=== PATIENT | female | born 1960 | race Caucasian/White ===

== ENCOUNTER 2020-04-10 14:50 | Inpatient (IN) | payer OTHER ==
[~2020-04-10] VITALS: Ht 157.5 cm; Wt 54.3 kg
--- NOTE | 2020-04-10 15:20 | NUR ---
THIS IS A 59 YO FEMALE COMING IN FOR LEFT ARM SWELLING AROUND FISTULA, LEFT BREAST SWELLING, FACIAL SWELLING, AND LEFT SHOULDER PAIN X2 DAYS. PER DAUGHTER PATIENT HAS HAD ISSUES WITH FISTULA IN PAST WITH VENOUS SWELLING, SPECIAL EVENTS MANAGER AWARE, WAS SUPPOSED TO REFER PATIENT TO VASCULAR MD, BUT WAS UNABLE TO DUE TO COVID. NOTED VENOUS SWELLING AROUND FISTULA, INTO LEFT BREAST, BILATERAL JVD PRESENT. LAST DIALYSIS WAS THIS AM. DIAGNOSED WITH KIDNEY FAILURE 2 YEARS AGO. ALL MONITORING IN PLACE, VSS, NADN, CALL LIGHT IN REACH.
[2020-04-10] MEDS ORDERED: SODIUM CHLORIDE FLUSH 10ML SYR IVF ONE (15:30)
--- NOTE | 2020-04-10 15:58 | NUR ---
ULTRASOUND PIV PLACED BY SONIA BO
--- NOTE | 2020-04-10 16:01 | NUR ---
ULTRASOUND TO ROOM
--- NOTE | 2020-04-10 16:02 | NUR ---
TASK RN: RIGHT FOREARM 2.5 INCH 18 GAUGE "INROCAN" PIV PLACED WITH ULTRASOUND
[2020-04-10 16:27] LABS: ALBUMIN 3.6 g/dL (3.4-5.0); ANION GAP 5 mmol/L (5-15); CHLORIDE 96 mmol/L (98-107)
[2020-04-10 16:33] LABS: ALANINE AMINOTRANSFERASE 21 U/L (12-78); ALKALINE PHOSPHATASE 63 U/L (45-117); BILIRUBIN,TOTAL 0.7 mg/dL (0.2-1.0); CREATININE 3.22 mg/dL (0.55-1.02); TOTAL PROTEIN 7.7 g/dL (6.4-8.2); TROPONIN I < 0.015 ng/mL (0.000-0.045)
[2020-04-10 16:41] LABS: BASOPHILS # (AUTO) 0.02 x10^3/uL (0-0.1); BASOPHILS % (AUTO) 0 % (0-1); EOSINOPHILS # (AUTO) 0.13 x10^3/uL (0-0.4); EOSINOPHILS % (AUTO) 3 % (1-7); LYMPHOCYTES # (AUTO) 0.54 x10^3/uL (1-3.4); LYMPHOCYTES % (AUTO) 12 % (22-44); MD SCAN; MEAN CORPUSCULAR HEMOGLOBIN 30.9 pg (27.0-34.8); MEAN CORPUSCULAR HGB CONC 31.8 g/dL (32.4-35.8); MEAN CORPUSCULAR VOLUME 96.9 fL (80-100); MEAN PLATELET VOLUME 6.8 fL (7.4-10.4); MONOCYTES % (AUTO) 13 % (2-9); NEUTROPHILS # (AUTO) 3.32 x10^3/uL (1.8-6.8); NEUTROPHILS % (AUTO) 72 % (42-75); PLATELET COUNT 210 x10^3/uL (130-400); RED BLOOD COUNT 3.22 x10^6/uL (3.82-5.3); RED CELL DISTRIBUTION WIDTH 15.4 % (9.6-15.2)
[2020-04-10] MEDS ORDERED: OMNIPAQUE 350 MG/ML, 150 ML BOTTLE ONE (17:15)
--- NOTE | 2020-04-10 17:18 | NUR ---
PATIENT BACK FROM CTA
--- NOTE | 2020-04-10 17:59 | NUR ---
PATIENT AMBULATORY WITH STEADY GAIT TO RESTROOM
--- NOTE | 2020-04-10 18:10 | NUR ---
CALL PLACED TO CT TO GET UPDATE ON DELAY OF CT READ. IMAGE WAS PUSHED THROUGH, AWAITING RADIOLOGIST READ
--- NOTE | 2020-04-10 18:30 | NUR ---
ALL RESULTS BACK, PATIENT UP FOR RECHECK
--- NOTE | 2020-04-10 18:45 | NUR ---
WAITING FOR ERP TO CONSULT WITH VASCULAR MD.
[2020-04-10] MEDS ORDERED: HEPARIN 5,000 UNITS/ML, 1ML IV PRN ×2 (19:00→21:30)
[2020-04-10] MEDS ORDERED: HEPARIN 5,000 UNITS/ML, 1ML IV ONE (19:00)
[2020-04-10] MEDS ORDERED: HEPARIN 25,000 UNITS/250ML PMX 250 ML IV PRN (19:00)
[2020-04-10] MEDS ORDERED: HEPARIN 5,000 UNITS/ML, 1ML ONE (19:02)
[2020-04-10] MEDS ORDERED: HEPARIN 25,000 UNITS/250ML PMX 250 ML ONE (19:02)
--- NOTE | 2020-04-10 19:21 | NUR ---
HEPARIN INFUSION STARTED, VERIFIED BY SONIA SNELL
--- NOTE | 2020-04-10 19:22 | NUR ---
ADMITTING MD IN ROOM
--- NOTE | 2020-04-10 19:43 | NUR ---
ENOC (DAUGHTER): [phone] OKAY TO CALL AND GIVE PATIENT INFO/UPDATES
[2020-04-10] MEDS ORDERED: ONDANSETRON ODT 4 MG PO PRN (20:00)
[2020-04-10] MEDS ORDERED: BISACODYL 10 MG SUPP PR PRN (20:00)
[2020-04-10] MEDS ORDERED: POLYETHYLENE GLYCOL 17 GM PACKET PO PRN (20:00)
--- NOTE | 2020-04-10 20:21 | NUR ---
ATTEMPT TO CALL REPORT X1
--- NOTE | 2020-04-10 20:38 | NUR ---
REPORT GIVEN TO SONIA RODRIGUEZ. PLAN OF CARE DISCUSSED. SONIA RODRIGUEZ AWARE OF HEPARIN INFUSION RUNNING AT TIME OF TRANSFER
[2020-04-10] MEDS: SODIUM CHLORIDE FLUSH 10ML SYR IVF SCH (21:28)
[2020-04-10 21:36] VITALS: BP 109/60
[2020-04-11 01:32] VITALS: BP 159/73
[2020-04-11] MEDS ORDERED: CALC667T6 PO (05:52)
[2020-04-11 07:01] LABS: BASOPHILS # (AUTO) 0.04 x10^3/uL (0-0.1); BASOPHILS % (AUTO) 1 % (0-1); EOSINOPHILS # (AUTO) 0.14 x10^3/uL (0-0.4); EOSINOPHILS % (AUTO) 3 % (1-7); LYMPHOCYTES # (AUTO) 0.96 x10^3/uL (1-3.4); LYMPHOCYTES % (AUTO) 20 % (22-44); MD NO; MEAN CORPUSCULAR HGB CONC 31.9 g/dL (32.4-35.8); MEAN CORPUSCULAR VOLUME 97.2 fL (80-100); MEAN PLATELET VOLUME 7.2 fL (7.4-10.4); MONOCYTES # (AUTO) 0.65 x10^3/uL (0.2-0.8); MONOCYTES % (AUTO) 13 % (2-9); NEUTROPHILS # (AUTO) 3.04 x10^3/uL (1.8-6.8); NEUTROPHILS % (AUTO) 63 % (42-75); PLATELET COUNT 236 x10^3/uL (130-400); RED BLOOD COUNT 3.53 x10^6/uL (3.82-5.3); RED CELL DISTRIBUTION WIDTH 14.9 % (9.6-15.2)
[2020-04-11 07:11] LABS: ANION GAP 7 mmol/L (5-15); CHLORIDE 95 mmol/L (98-107); CREATININE 4.52 mg/dL (0.55-1.02)
[2020-04-11] MEDS: SENNA/DOCUSATE TABLET PO SCH (08:50)
[2020-04-11] MEDS: SODIUM CHLORIDE FLUSH 10ML SYR IVF SCH ×2 (08:50→20:25)
[2020-04-11 09:13] VITALS: BP 157/96
[2020-04-11 12:09] VITALS: BP 152/74
[2020-04-11] MEDS: ACETAMINOPHEN 325 MG TABLET PO PRN (16:58)
[2020-04-11 19:59] VITALS: BP 175/71
[2020-04-11 20:23] VITALS: BP 136/81
[2020-04-12 00:20] VITALS: BP 154/71
[2020-04-12] MEDS: ACETAMINOPHEN 325 MG TABLET PO PRN ×2 (00:25→20:59)
[2020-04-12 05:49] LABS: ANION GAP 7 mmol/L (5-15); CALCIUM 10.6 mg/dL (8.5-10.1); CHLORIDE 96 mmol/L (98-107); CREATININE 6.54 mg/dL (0.55-1.02)
[2020-04-12 05:55] LABS: BASOPHILS # (AUTO) 0.06 x10^3/uL (0-0.1); BASOPHILS % (AUTO) 1 % (0-1); EOSINOPHILS # (AUTO) 0.16 x10^3/uL (0-0.4); EOSINOPHILS % (AUTO) 3 % (1-7); LYMPHOCYTES # (AUTO) 1.03 x10^3/uL (1-3.4); LYMPHOCYTES % (AUTO) 21 % (22-44); MD NO; MEAN CORPUSCULAR HEMOGLOBIN 31.1 pg (27.0-34.8); MEAN CORPUSCULAR HGB CONC 32.2 g/dL (32.4-35.8); MEAN CORPUSCULAR VOLUME 96.5 fL (80-100); MEAN PLATELET VOLUME 7.5 fL (7.4-10.4); MONOCYTES # (AUTO) 0.63 x10^3/uL (0.2-0.8); MONOCYTES % (AUTO) 13 % (2-9); NEUTROPHILS # (AUTO) 3.15 x10^3/uL (1.8-6.8); NEUTROPHILS % (AUTO) 63 % (42-75); PLATELET COUNT 217 x10^3/uL (130-400); RED BLOOD COUNT 3.39 x10^6/uL (3.82-5.3); RED CELL DISTRIBUTION WIDTH 15.8 % (9.6-15.2)
[2020-04-12] MEDS: HEPARIN 25,000 UNITS/250ML PMX 250 ML IV PRN (05:58)
[2020-04-12 08:26] VITALS: BP 149/58
[2020-04-12] MEDS: SENNA/DOCUSATE TABLET PO SCH (08:57)
[2020-04-12] MEDS: SODIUM CHLORIDE FLUSH 10ML SYR IVF SCH ×2 (08:58→20:12)
[2020-04-12 13:46] VITALS: BP 177/74
[2020-04-12 19:43] VITALS: BP 119/67
[2020-04-13 00:47] VITALS: BP 161/68
[2020-04-13] MEDS: ACETAMINOPHEN 325 MG TABLET PO PRN ×3 (02:07→21:30)
[2020-04-13 05:26] LABS: BASOPHILS % (AUTO) 0 % (0-1); EOSINOPHILS # (AUTO) 0.16 x10^3/uL (0-0.4); EOSINOPHILS % (AUTO) 4 % (1-7); LYMPHOCYTES # (AUTO) 0.55 x10^3/uL (1-3.4); LYMPHOCYTES % (AUTO) 13 % (22-44); MD NO; MEAN CORPUSCULAR HEMOGLOBIN 31.5 pg (27.0-34.8); MEAN CORPUSCULAR HGB CONC 32.8 g/dL (32.4-35.8); MEAN PLATELET VOLUME 7.4 fL (7.4-10.4); MONOCYTES # (AUTO) 0.54 x10^3/uL (0.2-0.8); MONOCYTES % (AUTO) 13 % (2-9); NEUTROPHILS # (AUTO) 2.84 x10^3/uL (1.8-6.8); NEUTROPHILS % (AUTO) 70 % (42-75); PLATELET COUNT 187 x10^3/uL (130-400); RED BLOOD COUNT 3.17 x10^6/uL (3.82-5.3); RED CELL DISTRIBUTION WIDTH 15.3 % (9.6-15.2)
[2020-04-13 05:28] LABS: ALBUMIN 3.5 g/dL (3.4-5.0); ANION GAP 8 mmol/L (5-15); CALCIUM 9.5 mg/dL (8.5-10.1); CHLORIDE 99 mmol/L (98-107)
[2020-04-13 05:34] LABS: % IRON SATURATION 50 % (20-55); ALANINE AMINOTRANSFERASE 30 U/L (12-78); ALKALINE PHOSPHATASE 74 U/L (45-117); BILIRUBIN,TOTAL 0.6 mg/dL (0.2-1.0); CREATININE 4.25 mg/dL (0.55-1.02); IRON LEVEL 118 mcg/dL (50-170); TOTAL IRON BINDING CAPACITY 238 mcg/dL (250-450); TOTAL PROTEIN 7.5 g/dL (6.4-8.2)
[2020-04-13 07:12] VITALS: BP 176/62
[2020-04-13] MEDS: SENNA/DOCUSATE TABLET PO SCH (08:25)
[2020-04-13] MEDS: SODIUM CHLORIDE FLUSH 10ML SYR IVF SCH ×2 (08:25→21:26)
[2020-04-13] MEDS ORDERED: ARANESP 25 MCG/ML **ESRD SQ SCH ×2 (12:00→12:29)
[2020-04-13 12:11] VITALS: BP 177/75
[2020-04-13] MEDS: CHOLECALCIFEROL 1,000 UNIT TABLET PO SCH (13:00)
[2020-04-13 18:25] VITALS: BP 152/61
[2020-04-14 01:47] VITALS: BP 184/80
[2020-04-14 05:15] LABS: BASOPHILS # (AUTO) 0.01 x10^3/uL (0-0.1); BASOPHILS % (AUTO) 0 % (0-1); EOSINOPHILS # (AUTO) 0.23 x10^3/uL (0-0.4); EOSINOPHILS % (AUTO) 5 % (1-7); LYMPHOCYTES # (AUTO) 0.82 x10^3/uL (1-3.4); LYMPHOCYTES % (AUTO) 18 % (22-44); MD NO; MEAN PLATELET VOLUME 7.5 fL (7.4-10.4); MONOCYTES # (AUTO) 0.47 x10^3/uL (0.2-0.8); MONOCYTES % (AUTO) 10 % (2-9); NEUTROPHILS # (AUTO) 3.04 x10^3/uL (1.8-6.8); NEUTROPHILS % (AUTO) 66 % (42-75); PLATELET COUNT 208 x10^3/uL (130-400); RED BLOOD COUNT 3.34 x10^6/uL (3.82-5.3); RED CELL DISTRIBUTION WIDTH 15.6 % (9.6-15.2)
[2020-04-14 05:24] LABS: ANION GAP 9 mmol/L (5-15); CALCIUM 10.5 mg/dL (8.5-10.1); CHLORIDE 101 mmol/L (98-107); CREATININE 5.98 mg/dL (0.55-1.02)
[2020-04-14 07:34] VITALS: BP 189/73
[2020-04-14] MEDS: SENNA/DOCUSATE TABLET PO SCH (07:59)
[2020-04-14] MEDS: CHOLECALCIFEROL 1,000 UNIT TABLET PO SCH (08:20)
[2020-04-14] MEDS: SODIUM CHLORIDE FLUSH 10ML SYR IVF SCH ×2 (08:21→20:26)
[2020-04-14 10:44] VITALS: BP 171/63
[2020-04-14] MEDS: ACETAMINOPHEN 325 MG TABLET PO PRN ×2 (10:48→23:09)
[2020-04-14] MEDS: AMLODIPINE 10 MG TAB PO SCH (10:48)
[2020-04-14 14:21] VITALS: BP 120/61
[2020-04-14 16:16] VITALS: BP 102/54
[2020-04-14 19:56] VITALS: BP 107/58
[2020-04-15] MEDS: HEPARIN 25,000 UNITS/250ML PMX 250 ML IV PRN (02:53)
[2020-04-15 03:00] VITALS: BP 128/74
[2020-04-15 06:10] VITALS: BP 153/64
[2020-04-15 06:33] LABS: MEAN CORPUSCULAR HEMOGLOBIN 30.7 pg (27.0-34.8); MEAN CORPUSCULAR HGB CONC 31.6 g/dL (32.4-35.8); MEAN CORPUSCULAR VOLUME 97.2 fL (80-100); MEAN PLATELET VOLUME 7.4 fL (7.4-10.4); PLATELET COUNT 207 x10^3/uL (130-400); RED BLOOD COUNT 3.36 x10^6/uL (3.82-5.3); RED CELL DISTRIBUTION WIDTH 15.6 % (9.6-15.2)
[2020-04-15 06:43] LABS: ALBUMIN 3.9 g/dL (3.4-5.0); ANION GAP 11 mmol/L (5-15); CALCIUM 10.7 mg/dL (8.5-10.1); CHLORIDE 99 mmol/L (98-107)
[2020-04-15 06:45] LABS: CREATININE 7.48 mg/dL (0.55-1.02)
[2020-04-15 06:55] LABS: BASOPHILS % (AUTO) 0 % (0-1); EOSINOPHILS # (AUTO) 0.15 x10^3/uL (0-0.4); EOSINOPHILS % (AUTO) 3 % (1-7); LYMPHOCYTES # (AUTO) 0.92 x10^3/uL (1-3.4); LYMPHOCYTES % (AUTO) 18 % (22-44); MD SCAN; MONOCYTES # (AUTO) 0.62 x10^3/uL (0.2-0.8); MONOCYTES % (AUTO) 12 % (2-9); NEUTROPHILS # (AUTO) 3.45 x10^3/uL (1.8-6.8); NEUTROPHILS % (AUTO) 67 % (42-75)
[2020-04-15 07:15] VITALS: BP 157/65
[2020-04-15] MEDS: CHOLECALCIFEROL 1,000 UNIT TABLET PO SCH (09:00)
[2020-04-15] MEDS: SENNA/DOCUSATE TABLET PO SCH (09:00)
[2020-04-15] MEDS: SODIUM CHLORIDE FLUSH 10ML SYR IVF SCH (09:00)
[2020-04-15] MEDS: AMLODIPINE 10 MG TAB PO SCH (09:00)
[2020-04-15 12:43] VITALS: BP 110/57
[2020-04-15] MEDS ORDERED: ACET325T26 PO (13:27)
[2020-04-15] MEDS ORDERED: AMLO10TA8 PO (13:27)
[2020-04-15] MEDS ORDERED: HYDR-3341 PO (13:27)
[2020-04-15] MEDS ORDERED: CHOL10003 PO (13:27)
[2020-04-15 13:30] VITALS: BP 109/68
[2020-04-15 17:53] VITALS: BP 134/61
== END 2020-04-15 18:13 | disposition home or self-care (01) | DRG 299 ==
LOC: ED 19:02 → EDIP 19:10 → 4WST 21:19
PROVIDERS: ADMIT Internal Medicine; ATTEND Hospitalist
DX: I70.8 Atherosclerosis of other arteries (principal); N18.6 End stage renal disease; E87.1 Hypo-osmolality and hyponatremia; I12.0 Hypertensive chronic kidney disease with stage 5 chronic kidney disease or end stage renal disease; N25.81 Secondary hyperparathyroidism of renal origin; E83.52 Hypercalcemia; D63.8 Anemia in other chronic diseases classified elsewhere; Z90.710 Acquired absence of both cervix and uterus; Z99.2 Dependence on renal dialysis; Z88.0 Allergy status to penicillin; Z88.5 Allergy status to narcotic agent
CPT/HCPCS: 36415; 71045; 71275; 80048; 80053; 80069; 82306; 82330; 82728; 83540; 83550; 83735; 83880; 83970; 84100; 84484; 84550; 85025; 85520; 86705; 86706; 87340; 90935; 93005; 93990; 99291; G0378; J0882; J1644; Q9967; G0365